=== PATIENT | female | born 1940 | race Hispanic/Latino ===

== ENCOUNTER → 2021-06-18 | Outpatient (CLI) | payer OTHER ==
[~2021-06-18] MED LIST: LIDOCAINE HCL 4% LTA SOL 4 ML VIAL ONE
== END | disposition home or self-care (01) ==
LOC: WHH 08:49
PROVIDERS: ATTEND Podiatrist Foot & Ankle Surgery
DX: I83.023 Varicose veins of left lower extremity with ulcer of ankle (principal); E11.622 Type 2 diabetes mellitus with other skin ulcer; L97.322 Non-pressure chronic ulcer of left ankle with fat layer exposed; I83.91 Asymptomatic varicose veins of right lower extremity; I10 Essential (primary) hypertension; E78.5 Hyperlipidemia, unspecified; M19.90 Unspecified osteoarthritis, unspecified site; F32.9 Major depressive disorder, single episode, unspecified; Z90.49 Acquired absence of other specified parts of digestive tract; Z98.890 Other specified postprocedural states; Z79.899 Other long term (current) drug therapy; Z79.84 Long term (current) use of oral hypoglycemic drugs
CPT/HCPCS: 15271; A6207; A6209; Q4133

== ENCOUNTER → 2021-06-25 | Outpatient (CLI) | payer OTHER | END | disposition home or self-care (01) | LOC: WHH 08:09 | PROVIDERS: ATTEND Podiatrist Foot & Ankle Surgery | DX: I83.023 Varicose veins of left lower extremity with ulcer of ankle (principal); E11.622 Type 2 diabetes mellitus with other skin ulcer; L97.322 Non-pressure chronic ulcer of left ankle with fat layer exposed; I83.91 Asymptomatic varicose veins of right lower extremity; I10 Essential (primary) hypertension; E78.5 Hyperlipidemia, unspecified; M19.90 Unspecified osteoarthritis, unspecified site; F32.9 Major depressive disorder, single episode, unspecified; Z90.49 Acquired absence of other specified parts of digestive tract; Z98.890 Other specified postprocedural states; Z79.899 Other long term (current) drug therapy; Z79.84 Long term (current) use of oral hypoglycemic drugs | CPT/HCPCS: 15271; A6207 ×2; A6209; Q4133; 15275 ==

== ENCOUNTER → 2021-07-02 | Outpatient (CLI) | payer OTHER | END | disposition home or self-care (01) | LOC: WHH 09:53 | PROVIDERS: ATTEND Podiatrist Foot & Ankle Surgery | DX: I83.023 Varicose veins of left lower extremity with ulcer of ankle (principal); E11.622 Type 2 diabetes mellitus with other skin ulcer; L97.322 Non-pressure chronic ulcer of left ankle with fat layer exposed; I83.91 Asymptomatic varicose veins of right lower extremity; I10 Essential (primary) hypertension; E78.5 Hyperlipidemia, unspecified; M19.90 Unspecified osteoarthritis, unspecified site; F32.9 Major depressive disorder, single episode, unspecified; Z90.49 Acquired absence of other specified parts of digestive tract; Z98.890 Other specified postprocedural states; Z79.899 Other long term (current) drug therapy; Z79.84 Long term (current) use of oral hypoglycemic drugs | CPT/HCPCS: 15271; A4450; A6209; Q4133 ==

== ENCOUNTER → 2021-07-09 | Outpatient (CLI) | payer OTHER | END | disposition home or self-care (01) | LOC: WHH 08:21 | PROVIDERS: ATTEND Podiatrist Foot & Ankle Surgery | DX: I83.023 Varicose veins of left lower extremity with ulcer of ankle (principal); E11.622 Type 2 diabetes mellitus with other skin ulcer; L97.322 Non-pressure chronic ulcer of left ankle with fat layer exposed; I83.91 Asymptomatic varicose veins of right lower extremity; I10 Essential (primary) hypertension; E78.5 Hyperlipidemia, unspecified; M19.90 Unspecified osteoarthritis, unspecified site; F32.9 Major depressive disorder, single episode, unspecified; Z90.49 Acquired absence of other specified parts of digestive tract; Z98.890 Other specified postprocedural states; Z79.899 Other long term (current) drug therapy; Z79.84 Long term (current) use of oral hypoglycemic drugs | CPT/HCPCS: 15271; A6209; Q4133 ==

== ENCOUNTER → 2021-07-16 | Outpatient (CLI) | payer OTHER | END | disposition home or self-care (01) | LOC: WHH 08:02 | PROVIDERS: ATTEND Podiatrist Foot & Ankle Surgery | DX: I83.023 Varicose veins of left lower extremity with ulcer of ankle (principal); E11.622 Type 2 diabetes mellitus with other skin ulcer; L97.322 Non-pressure chronic ulcer of left ankle with fat layer exposed; I83.91 Asymptomatic varicose veins of right lower extremity; I10 Essential (primary) hypertension; E78.5 Hyperlipidemia, unspecified; M19.90 Unspecified osteoarthritis, unspecified site; F32.9 Major depressive disorder, single episode, unspecified; Z90.49 Acquired absence of other specified parts of digestive tract; Z98.890 Other specified postprocedural states; Z79.899 Other long term (current) drug therapy; Z79.84 Long term (current) use of oral hypoglycemic drugs | CPT/HCPCS: 15271; A4450; A6209; Q4133 ==

== ENCOUNTER → 2021-07-23 | Outpatient (CLI) | payer OTHER | END | disposition home or self-care (01) | LOC: WHH 08:09 | PROVIDERS: ATTEND Podiatrist Foot & Ankle Surgery | DX: T86.828 Other complications of skin graft (allograft) (autograft) (principal); I83.023 Varicose veins of left lower extremity with ulcer of ankle; E11.622 Type 2 diabetes mellitus with other skin ulcer; L97.322 Non-pressure chronic ulcer of left ankle with fat layer exposed; I83.91 Asymptomatic varicose veins of right lower extremity; I10 Essential (primary) hypertension; E78.5 Hyperlipidemia, unspecified; M19.90 Unspecified osteoarthritis, unspecified site; F32.9 Major depressive disorder, single episode, unspecified; Z90.49 Acquired absence of other specified parts of digestive tract; Z98.890 Other specified postprocedural states; Z79.899 Other long term (current) drug therapy; Z79.84 Long term (current) use of oral hypoglycemic drugs; Y83.2 Surgical operation with anastomosis, bypass or graft as the cause of abnormal reaction of the patient, or of later complication, without mention of misadventure at the time of the procedure | CPT/HCPCS: 15271; A6209; Q4133 ==

== ENCOUNTER → 2021-07-30 | Outpatient (CLI) | payer OTHER | END | disposition home or self-care (01) | LOC: WHH 07:53 | PROVIDERS: ATTEND Podiatrist Foot & Ankle Surgery | DX: T86.828 Other complications of skin graft (allograft) (autograft) (principal); I83.023 Varicose veins of left lower extremity with ulcer of ankle; E11.622 Type 2 diabetes mellitus with other skin ulcer; L97.322 Non-pressure chronic ulcer of left ankle with fat layer exposed; I83.91 Asymptomatic varicose veins of right lower extremity; I10 Essential (primary) hypertension; E78.5 Hyperlipidemia, unspecified; M19.90 Unspecified osteoarthritis, unspecified site; F32.9 Major depressive disorder, single episode, unspecified; Z90.49 Acquired absence of other specified parts of digestive tract; Z98.890 Other specified postprocedural states; Z79.899 Other long term (current) drug therapy; Z79.84 Long term (current) use of oral hypoglycemic drugs; Y83.2 Surgical operation with anastomosis, bypass or graft as the cause of abnormal reaction of the patient, or of later complication, without mention of misadventure at the time of the procedure | CPT/HCPCS: 15271; A6209; Q4133; 15275 ==

== ENCOUNTER → 2021-08-06 | Outpatient (CLI) | payer OTHER | END | disposition home or self-care (01) | LOC: WHH 08:13 | PROVIDERS: ATTEND Podiatrist Foot & Ankle Surgery | DX: T86.828 Other complications of skin graft (allograft) (autograft) (principal); I83.023 Varicose veins of left lower extremity with ulcer of ankle; E11.622 Type 2 diabetes mellitus with other skin ulcer; L97.322 Non-pressure chronic ulcer of left ankle with fat layer exposed; I10 Essential (primary) hypertension; I83.91 Asymptomatic varicose veins of right lower extremity; E78.5 Hyperlipidemia, unspecified; M19.90 Unspecified osteoarthritis, unspecified site; F32.9 Major depressive disorder, single episode, unspecified; Z90.49 Acquired absence of other specified parts of digestive tract; Z98.890 Other specified postprocedural states; Z79.899 Other long term (current) drug therapy; Z79.84 Long term (current) use of oral hypoglycemic drugs; Y83.2 Surgical operation with anastomosis, bypass or graft as the cause of abnormal reaction of the patient, or of later complication, without mention of misadventure at the time of the procedure | CPT/HCPCS: 15271; A6209; Q4133 ==

== ENCOUNTER → 2021-08-13 | Outpatient (CLI) | payer OTHER | END | disposition home or self-care (01) | LOC: WHH 08:10 | PROVIDERS: ATTEND Podiatrist Foot & Ankle Surgery | DX: T86.828 Other complications of skin graft (allograft) (autograft) (principal); I83.023 Varicose veins of left lower extremity with ulcer of ankle; E11.622 Type 2 diabetes mellitus with other skin ulcer; L97.322 Non-pressure chronic ulcer of left ankle with fat layer exposed; I10 Essential (primary) hypertension; I83.91 Asymptomatic varicose veins of right lower extremity; E78.5 Hyperlipidemia, unspecified; M19.90 Unspecified osteoarthritis, unspecified site; F32.9 Major depressive disorder, single episode, unspecified; Z90.49 Acquired absence of other specified parts of digestive tract; Z98.890 Other specified postprocedural states; Z79.899 Other long term (current) drug therapy; Z79.84 Long term (current) use of oral hypoglycemic drugs; Y83.2 Surgical operation with anastomosis, bypass or graft as the cause of abnormal reaction of the patient, or of later complication, without mention of misadventure at the time of the procedure | CPT/HCPCS: 15271; A4450; A6209; Q4133 ==

== ENCOUNTER → 2021-08-20 | Outpatient (CLI) | payer OTHER | END | disposition home or self-care (01) | LOC: WHH 08:04 | PROVIDERS: ATTEND Podiatrist Foot & Ankle Surgery | DX: T86.828 Other complications of skin graft (allograft) (autograft) (principal); I83.023 Varicose veins of left lower extremity with ulcer of ankle; E11.622 Type 2 diabetes mellitus with other skin ulcer; L97.322 Non-pressure chronic ulcer of left ankle with fat layer exposed; I10 Essential (primary) hypertension; I83.91 Asymptomatic varicose veins of right lower extremity; E78.5 Hyperlipidemia, unspecified; M19.90 Unspecified osteoarthritis, unspecified site; F32.9 Major depressive disorder, single episode, unspecified; Z90.49 Acquired absence of other specified parts of digestive tract; Z98.890 Other specified postprocedural states; Z79.899 Other long term (current) drug therapy; Z79.84 Long term (current) use of oral hypoglycemic drugs; Y83.2 Surgical operation with anastomosis, bypass or graft as the cause of abnormal reaction of the patient, or of later complication, without mention of misadventure at the time of the procedure | CPT/HCPCS: 15271; A6209; Q4133 ==

== ENCOUNTER → 2021-08-27 | Outpatient (CLI) | payer OTHER | END | disposition home or self-care (01) | LOC: WHH 08:49 | PROVIDERS: ATTEND Podiatrist Foot & Ankle Surgery | DX: T86.828 Other complications of skin graft (allograft) (autograft) (principal); I83.023 Varicose veins of left lower extremity with ulcer of ankle; E11.622 Type 2 diabetes mellitus with other skin ulcer; L97.322 Non-pressure chronic ulcer of left ankle with fat layer exposed; I10 Essential (primary) hypertension; I83.91 Asymptomatic varicose veins of right lower extremity; E78.5 Hyperlipidemia, unspecified; M19.90 Unspecified osteoarthritis, unspecified site; F32.9 Major depressive disorder, single episode, unspecified; Z90.49 Acquired absence of other specified parts of digestive tract; Z98.890 Other specified postprocedural states; Z79.899 Other long term (current) drug therapy; Z79.84 Long term (current) use of oral hypoglycemic drugs; Y83.2 Surgical operation with anastomosis, bypass or graft as the cause of abnormal reaction of the patient, or of later complication, without mention of misadventure at the time of the procedure | CPT/HCPCS: G0463 ==